=== PATIENT | female | born 1990 | race Caucasian/White ===

== ENCOUNTER 2020-05-04 13:41 | Outpatient (CLI) | payer OTHER ==
[2020-05-04 14:06] LABS: BASOPHILS # (AUTO) 0.1 10^3/uL (0.0-0.1); BASOPHILS % (AUTO) 0.9 %; EOSINOPHILS # (AUTO) 0.3 10^3/uL (0.0-0.7); EOSINOPHILS % (AUTO) 4.3 %; HGB - HEMOGLOBIN 14.6 g/dL (12.0-16.0); LYMPHOCYTES # (AUTO) 1.7 10^3/uL (1.5-3.5); LYMPHOCYTES % (AUTO) 25.5 %; MEAN CORPUSCULAR HEMOGLOBIN 30.1 pg (27.0-31.0); MEAN CORPUSCULAR HGB CONC 33.5 g/dL (32.0-36.0); MEAN CORPUSCULAR VOLUME 89.9 fL (81.0-99.0); MEAN PLATELET VOLUME 9.8 fL (7.9-10.8); MONOCYTES # (AUTO) 0.5 10^3/uL (0.0-1.0); MONOCYTES % (AUTO) 8.3 %; NEUTROPHILS % (AUTO) 60.8 %; PLT - PLATELET COUNT 253 10^3/uL (130-450); RED BLOOD COUNT 4.85 10^6/uL (4.20-5.40); RED CELL DISTRIBUTION WIDTH 11.9 % (12.0-15.0); WHITE BLOOD COUNT 6.5 x10^3/uL (4.8-10.8)
== END 2020-05-04 13:42 | disposition home or self-care (01) ==
LOC: LAB 13:41
PROVIDERS: ATTEND Obstetrics & Gynecology
DX: N80.1 Endometriosis of ovary (principal)
CPT/HCPCS: 36415; 85025; 86850; 86900; 86901

== ENCOUNTER 2020-05-06 12:28 | Day surgery (SDC) | payer OTHER ==
[2020-05-06] MEDS ORDERED: fentaNYL 100 MCG/2 ML VIAL IVP ONE (12:29)
[2020-05-06] MEDS ORDERED: ACETAMINOPHEN 1,000 MG/100 ML 100 ML IV ONE (12:29)
[2020-05-06] MEDS ORDERED: MIDAZOLAM 2 MG/2 ML VIAL IVP ONE (12:29)
[2020-05-06] MEDS ORDERED: ONDANSETRON 4 MG/2 ML VIAL IVP ONE (12:29)
[2020-05-06] MEDS ORDERED: ALBUTEROL 6.7 GM INHALER INH ONE (12:29)
[2020-05-06] MEDS ORDERED: KETOROLAC 30 MG/ML VIAL IVP ONE (12:29)
[2020-05-06] MEDS ORDERED: DEXAMETHASONE 4 MG/ML VIAL IVP ONE (12:29)
[2020-05-06] MEDS ORDERED: PROPOFOL 200 MG/20 ML VIAL IVP ONE (12:29)
[2020-05-06] MEDS ORDERED: NEOSTIGMINE 1 MG/1 ML 10 ML MDV IVP ONE (12:29)
[2020-05-06] MEDS ORDERED: GLYCOPYRROLATE 1 MG/5 ML VIAL IVP ONE (12:29)
[2020-05-06] MEDS ORDERED: ROCURONIUM 50 MG/5 ML VIAL IVP ONE (12:29)
[2020-05-06] MEDS ORDERED: LIDOCAINE-MPF 2% 5 ML VIAL IM ONE (12:29)
--- NOTE | 2020-05-06 12:40 | ANESTHESIA ---
Pre-Anesthesia VS, & Labs - Diagnosis endometrioma - Procedure Lap ovarian cystectomy Vital Signs: Last Vital Signs Temp 36.8 C 05/06/20 12:42 Pulse 94 05/06/20 12:42 Resp 12 05/06/20 12:42 BP 138/75 H 05/06/20 12:42 Pulse Ox 96 05/06/20 12:42 Height 5 ft 6.93 in Weight (kg) 67.3 kg - NPO >8 hours - Is Patient ?: No - Lab Results Lab results reviewed: Yes Home Medications and Allergies Home Medications: Ambulatory Orders Cetirizine [ZyrTEC] 10 mg PO DAILY 04/28/20 Fluticasone [Flonase] 1 sprays ESA BID 04/28/20 Levothyroxine [Synthroid] 25 mcg PO QDAC 04/28/20 Levothyroxine [Synthroid] 75 mcg PO QDAC 04/28/20 Cetirizine [ZyrTEC] 10 mg PO DAILY 04/28/20 Fluticasone [Flonase] 1 sprays ESA BID 04/28/20 Levothyroxine [Synthroid] 25 mcg PO QDAC 04/28/20 Levothyroxine [Synthroid] 75 mcg PO QDAC 04/28/20 Allergies/Adverse Reactions: Allergies Allergy/AdvReac Type Severity Reaction Status Date / Time strawberry Allergy Anaphylaxis Verified 04/28/20 15:43 Anes History & Medical History - Anesthetic History Anesthesia Complications: reports: No previous complications Family history of Anesthesia Complications: Denies Family history of Malignant Hyperthermia: Denies - Medical History Cardiovascular: reports: None Pulmonary: reports: None Gastrointestinal: reports: None Urinary: reports: None Musculoskeletal: reports: None Endocrine/Autoimmune: reports: HyPOthyroidism Skin: reports: None - Surgical History General: Other Exam General: Alert, Oriented x3, Cooperative Dental: WNL Mouth Opening: Greater than 4 Fingerbreadths Neck Mobility: Normal Mallampati classification: I Thyromental Distance: greater than 6 cm Respiratory: Lungs clear, Normal breath sounds, No respiratory distress Cardiovascular: Regular rate Neurological: Normal speech Mental/Cognitive Status: Alert/Oriented X3, Normal for patient Cognitive Status: Within normal limits Plan Anesthesia Type: General Consent for Procedure(s) Verified and Reviewed: Yes Code Status: Attempt Resuscitation ASA classification: 2-Mild systemic disease Is this case an emergency?: No
[2020-05-06] MEDS ORDERED: LACTATED RINGERS 1,000 ML IV ONE (12:41)
[2020-05-06 12:48] LABS: HCG UR QUAL NEGATIVE
[2020-05-06] MEDS ORDERED: BUPIVACAINE 0.25% PF 30 ML VIAL SUBQ ONE ×2 (13:40)
[2020-05-06] MEDS ORDERED: BUPIVACAINE 0.25% PF 30 ML VIAL ONE (13:48)
[2020-05-06] MEDS ORDERED: SILVER NITRATE APPLICATOR TOP ONE (15:17)
[2020-05-06] MEDS ORDERED: ONDANSETRON 4 MG/2 ML VIAL IVP PRN (15:25)
[2020-05-06] MEDS ORDERED: oxyCODONE 5 MG TABLET PO PRN (15:25)
--- NOTE | 2020-05-06 15:28 | OPERATIVE REPORT ---
Operative Report - General Procedure Date: 05/06/20 Planned Procedure: operative laparoscopy with right ovarian cystectomy Pre-Op Diagnosis: right ovarian endometrioma Procedure Performed: operative laparoscopy with lysis of adhesions, right ovarian cyst wall removal, fulguration of endometriosis Post Op Diagnosis: endometriosis (ASRM Stage II-III), right ovarian endometrioma - Procedure Note Primary Surgeon: Radha De La Cruz Secondary Surgeon: Ursula Singh Anesthesia Technique: General ET tube Pathology: right ovarian cyst wall IV Fluids (mL): 400 Estimated Blood Loss (mL): 5 Urine Output (mL): 35 Indications: right ovarian endometrioma, infertility, pelvic pain Findings: Filmy and dense adhesions of descending colon to left pelvic sidewall lysed with incomplete mobility of colon achieved. Normal left ovary with clubbed left fallopian tube. Uterus anteverted, mobile and boggy, with small subserosal fibroid on right posterolateral surface. Right ovary with approximately 3.5 cm endometrioma adhered to right uterosacral ligament, ruptured during attempt at mobilization. Cyst wall removed with remaining ovary overall normal in appearance but some superficial purple-red vesicles suggestive of superficial endometriosis implants, fulgurated. Multiple superficial peritoneal endometriosis implants along bilateral uterosacral ligaments, in rectouterine cul de sac, and anterior to uterus, fulgurated. Normal appearing liver edge and gallbladder, grossly normal bowel, appendix not visualized. Complications: none - Other Other Information/Narrative: After informed consent was assured, the patient was taken to the operating room where anesthesia was induced. Patient was placed in low dorsal lithotomy with yellow fin stirrups. An exam under anesthesia revealed a small anteverted uterus. The patient was prepped and draped in the usual sterile fashion. A surgical timeout was performed. A speculum was inserted into the vagina and a [employer]ek[employer] uterine manipulator was inserted through the cervix to the fundus and the single tooth of the tenaculum was used to grasp the cervix. A barroso catheter was placed draining clear yellow urine. Gloves were changed and attention was turned to the abdomen. 0.25% marcaine plain was injected at the site of the incision. An incision was made at the umbilicus and the fascia and peritoneum were entered under direct visualization with the laparoscope. The abdomen was insufflated. Inspection of the bowel immediately under the entry site revealed no injury to the viscera. Lidocaine was then injected on the right lateral side 2 cm superior and medial to the anterior superior iliac spine. An incision was made and a 5 mm port was placed through the incision under visualization with the laparoscope. A third 5 mm port was placed in a similar fashion on the left. Survey of the abdomen and pelvis revealed a normal liver edge and gallbladder, grossly normal bowel, appendix not visualized. Diffuse endometriotic lesions as described above. Endoshears were used to resect the filmy adhesions attaching the descending colon to the left pelvic sidewall, allowing sufficient mobility for visualization of the left ovary and the rectouterine cul de sac. The left ovary was normal with a clubbed left fallopian tube noted. A blunt grasper was placed behind the right ovary which was normal on initial inspection however during the attempt to gently sweep it forward to visualize the posterior surface of the ovary, the cyst which was apparently adhered to the right uterosacral ligament ruptured with return of chocolate colored fluid. This was removed from the pelvis by suction and the pelvic was irrigated. The right ovary was now mobilized allowing visualization of the empty cyst wall; no active bleeding was noted. The cyst wall was dissected off of the normal ovarian stroma with the Ligasure and removed intact through the port site. Endometriotic lesions on the right ovary, and on the peritoneum anterior to the uterus, posterior to the uterus and along the uterosacral ligaments were fulgurated with the monopolar L hook. Good hemostasis was maintained. The trochars were removed from the abdomen. Port sites were closed with 4-0 monocryl, and dermabond skin adhesive was used to cover the port sites. The right lower quadrant port site was noted to have a small ooze around the adhesive so a sterile gauze and tegaderm were used to apply pressure. The hulka clip was removed from the uterus. Silver nitrate was applied at the tenaculum site and hemostasis was achieved. The patient was awoken from anesthesia and she was taken to PACU in stable condition.
[2020-05-06] MEDS: HYDROmorphone 0.5 MG/0.5 ML SYRINGE IVP PRN ×2 (15:36→15:43)
[2020-05-06] MEDS ORDERED: HYDROmorphone 1 MG/ML CARPUJECT ONE (15:39)
[2020-05-06 16:08] VITALS: BP 125/71
== END 2020-05-06 12:29 | disposition home or self-care (01) ==
LOC: SDS 12:28
PROVIDERS: ATTEND Obstetrics & Gynecology
PROC: 0U5 Female Reproductive System, Destruction (ICD-10-PCS; 2020-05-06)
PROC: 0UB Female Reproductive System, Excision (ICD-10-PCS; principal; 2020-05-06 13:45)
DX: N80.1 Endometriosis of ovary (principal); E03.9 Hypothyroidism, unspecified; N80.3 Endometriosis of pelvic peritoneum; D25.2 Subserosal leiomyoma of uterus
CPT/HCPCS: 81025

== ENCOUNTER 2024-04-23 11:48 | Outpatient (CLI) | payer OTHER | END 2024-04-23 11:49 | disposition home or self-care (01) | LOC: LAB.N 11:48 | PROVIDERS: ATTEND Obstetrics & Gynecology | DX: E06.3 Autoimmune thyroiditis (principal) | CPT/HCPCS: 36415; 84443 ==

== ENCOUNTER 2024-04-30 16:39 | Outpatient (CLI) | payer OTHER ==
--- NOTE | 2024-05-01 14:54 | Ultrasound Report ---
PROCEDURE: OB Anatomy Scan INDICATIONS: SUPERVISION OF OUTSIDE/PRIOR DATING DATA: Last menstrual period (LMP): 12/12/2023. LMP-based estimated date of delivery (DEDE): 09/17/2020. First dating scan (date and location): 04/30/2024. Estimated date of delivery (DEDE) from first dating scan: 09/17/2024. The below data below was generated using the clinical/ultrasound DEDE of 09/17/2024 TECHNIQUE: Real-time scanning was performed of the fetus, with image documentation and biometric measurements. COMPARISON: None. FINDINGS: General: A single living intrauterine gestation is present. Presentation: Transverse Placenta: Placental position is anterior, without previa. Amniotic fluid index: 13 point cm, within normal limits for gestational age. heart rate: 137 beats per minute. Maternal cervical canal: 4. cm long; normal length is 2.5 cm or more. biometrics: Biparietal diameter: 4.8 cm 20 weeks 3 days 65th percentile Head circumference: 18.1 cm 20 weeks 3 days 66 percentile Abdominal circumference: 15.2 cm 20 weeks 3 days 58th percentile Femur length: 3.1 cm 19 weeks 4 days 25th percentile Estimated gestational age from initial scan: 20 weeks 0 Composite gestational age from present scan: 20 weeks 1 day Estimated weight and percentile: 329 g 48th percentile Measurement variability in biometric dating: +/- 10 days from 12-20 weeks gestation, +/- 2 weeks from 20-30 weeks gestation, +/- 3 weeks at 30 weeks gestation or later. Anatomic survey: Neuro: Ventricles are normal at less than 10 mm. Cisterna magna is normal at 3-11 mm. Cerebellum i s normal in size and morphology. Nuchal skin fold: Normal at less than 6 mm between 14 and 20 weeks gestational age. Face: Nose and lips, facial profile are normal. Spine: Not well seen. Heart: 4-chambered heart is an ventricular outflow tracts are not well seen.. Diaphragm: Diaphragm is intact. Stomach: Left-sided stomach is present. Kidneys: No hydronephrosis. Normal is less than 5 mm in 2nd trimester, less than 7 mm in 3rd trimester. Cord: 3 vessel cord has orthotopic insertion. Bladder: Normal in size. Extremities: All 4 extremities are visualized. IMPRESSION: Single live intrauterine gestation with gestational age today of 20 weeks 1 day. Four-chamber heart/outflow tracts as well as spine are suboptimally evaluated on current exam. Follow -up is recommended. Reviewed by: Aggie Clarke MD on 05/01/2024 2:53 PM PDT Approved by: Aggie Clarke MD on 05/01/2024 2:53 PM PDT Station ID: [id number]
== END 2024-04-30 16:40 | disposition home or self-care (01) ==
LOC: DI 16:39
PROVIDERS: ATTEND Obstetrics & Gynecology
DX: Z34.92 Encounter for supervision of normal pregnancy, unspecified, second trimester (principal)

== ENCOUNTER 2024-05-14 12:48 | Outpatient (CLI) | payer OTHER ==
--- NOTE | 2024-05-14 19:18 | Ultrasound Report ---
PROCEDURE: OB Follow up INDICATIONS: SUPERVISION OF . Incomplete anatomy study. OUTSIDE/PRIOR DATING DATA: Last menstrual period (LMP): 12/12/2023. LMP-based estimated date of delivery (DEDE): 09/17/2024. First dating scan (date and location): 04/30/2024. Estimated date of delivery (DEDE) from first dating scan: 09/17/2024. The below data below was generated using the ultrasound DEDE of 09/17/2024 TECHNIQUE: Real-time scanning was performed of the fetus, with image documentation and biometric measurements. Endovaginal scanning: Not performed. COMPARISON: 04/30/2024. FINDINGS: General: A single living intrauterine gestation is present. Presentation: Vertex Placenta: Placental position is anterior, without previa. Amniotic fluid index: 15.1 cm, within normal limits for gestational age. heart rate: 144 beats per minute. Maternal cervical canal: 3.6 cm long; normal length is 2.5 cm or more. Estimated clinical age: 22 weeks 0 days. Other: spine and four-chamber view and right and left ventricular outflow tracts are well seen and are within normal limits. IMPRESSION: 1. Living second trimester intrauterine with no sonographic evidence of complications. 2. Normal spine and heart views. This completes a normal second trimester anatomy study. Reviewed by: Seferino Valentin MD on 05/14/2024 7:17 PM PDT Approved by: Seferino Valentin MD on 05/14/2024 7:17 PM PDT Station ID: [id number]
== END 2024-05-14 12:49 | disposition home or self-care (01) ==
LOC: DI 12:48
PROVIDERS: ATTEND Obstetrics & Gynecology
DX: Z34.92 Encounter for supervision of normal pregnancy, unspecified, second trimester (principal)

== ENCOUNTER 2024-05-14 13:21 | Outpatient (CLI) | payer OTHER ==
[2024-05-14 14:04] LABS: ALBUMIN 3.6 g/dL (3.2-5.5); ALBUMIN/GLOBULIN RATIO 1.1 (1.0-2.2); BILIRUBIN,TOTAL 0.3 mg/dL (0.2-1.0); CALCIUM 9.2 mg/dL (8.5-10.3); CREATININE 0.6 mg/dL (0.6-1.3); POTASSIUM 3.6 mmol/L (3.5-4.5); TOTAL PROTEIN 6.9 g/dL (6.4-8.9)
== END 2024-05-14 13:22 | disposition home or self-care (01) ==
LOC: LAB 13:21
PROVIDERS: ATTEND Obstetrics & Gynecology
DX: L29.9 Pruritus, unspecified (principal)
CPT/HCPCS: 36415; 80053; 82239

== ENCOUNTER 2024-06-11 10:12 | Outpatient (CLI) | payer OTHER ==
[2024-06-11 11:28] LABS: HCT - HEMATOCRIT 35.4 % (37.0-47.0); HGB - HEMOGLOBIN 11.7 g/dL (12.0-16.0); MEAN CORPUSCULAR HEMOGLOBIN 30.3 pg (27.0-31.0); MEAN CORPUSCULAR HGB CONC 33.1 g/dL (32.0-36.0); MEAN CORPUSCULAR VOLUME 91.7 fL (81.0-99.0); MEAN PLATELET VOLUME 10.1 fL (7.9-10.8); RED BLOOD COUNT 3.86 10^6/uL (4.20-5.40); RED CELL DISTRIBUTION WIDTH 12.4 % (12.0-15.0); WHITE BLOOD COUNT 9.9 x10^3/uL (4.8-10.8)
[2024-06-11 12:00] LABS: THYROID STIMULATING HORMONE 1.19 uIU/mL (0.34-5.60)
== END 2024-06-11 10:13 | disposition home or self-care (01) ==
LOC: LAB 10:12
PROVIDERS: ATTEND Obstetrics & Gynecology
DX: O99.280 Endocrine, nutritional and metabolic diseases complicating pregnancy, unspecified trimester (principal); E06.3 Autoimmune thyroiditis; O99.719 Diseases of the skin and subcutaneous tissue complicating pregnancy, unspecified trimester; L29.9 Pruritus, unspecified
CPT/HCPCS: 36415; 82239; 82950; 84439; 84443; 85027

== ENCOUNTER 2024-06-23 09:30 | Outpatient (CLI) | payer OTHER ==
[2024-06-23 09:57] LABS: ALBUMIN 3.3 g/dL (3.2-5.5); BILIRUBIN,TOTAL 0.2 mg/dL (0.2-1.0); CALCIUM 8.8 mg/dL (8.5-10.3); CREATININE 0.5 mg/dL (0.6-1.3); POTASSIUM 3.6 mmol/L (3.5-4.5); TOTAL PROTEIN 6.6 g/dL (6.4-8.9)
== END 2024-06-23 09:31 | disposition home or self-care (01) ==
LOC: LAB 09:30
PROVIDERS: ATTEND Nurse Practitioner
DX: L29.9 Pruritus, unspecified (principal)
CPT/HCPCS: 36415; 80053; 82542

== ENCOUNTER 2024-07-15 10:58 | Outpatient (CLI) | payer OTHER | END 2024-07-15 10:59 | disposition home or self-care (01) | LOC: LAB.N 10:58 | PROVIDERS: ATTEND Nurse Practitioner | DX: L29.9 Pruritus, unspecified (principal) | CPT/HCPCS: 36415; 82239 ==

== ENCOUNTER 2024-07-21 15:56 | Outpatient (CLI) | payer OTHER ==
[2024-07-21 17:37] LABS: HCT - HEMATOCRIT 33.2 % (37.0-47.0); HGB - HEMOGLOBIN 10.6 g/dL (12.0-16.0); MEAN CORPUSCULAR HGB CONC 31.9 g/dL (32.0-36.0); MEAN CORPUSCULAR VOLUME 87.6 fL (81.0-99.0); MEAN PLATELET VOLUME 10.6 fL (7.9-10.8); RED BLOOD COUNT 3.79 10^6/uL (4.20-5.40); RED CELL DISTRIBUTION WIDTH 12.8 % (12.0-15.0); WHITE BLOOD COUNT 11.5 x10^3/uL (4.8-10.8)
== END 2024-07-21 15:57 | disposition home or self-care (01) ==
LOC: LAB.N 15:56
PROVIDERS: ATTEND Obstetrics & Gynecology
DX: Z34.90 Encounter for supervision of normal pregnancy, unspecified, unspecified trimester (principal)
CPT/HCPCS: 36415; 82542; 82728; 85027